=== PATIENT | male | born 1965 | race Caucasian/White ===

== ENCOUNTER 2017-10-08 07:37 | Day surgery (SDC) | payer OTHER ==
[2017-10-08] MEDS ORDERED: Phenylephrine 10 mg/ml Inj ONE (07:55)
[2017-10-08] MEDS ORDERED: Midazolam 2 MG/2 ML VIAL ONE ×2 (07:56→08:26)
[2017-10-08] MEDS ORDERED: Iodixanol 320 MG/ML 100 ML BOTTLE IV ONE (07:56)
[2017-10-08] MEDS ORDERED: Iohexol 350mgl/ml 50 ML ONE (07:56)
[2017-10-08] MEDS ORDERED: Iodixanol 320 MG/ML 200 ML BOTTLE IV ONE (07:57)
[2017-10-08] MEDS ORDERED: Nitroglycerin 50mg in D5W 50 MG/250 ML BOTTLE IV ONE (07:57)
[2017-10-08] MEDS ORDERED: Lidocaine 2% Inj (20ml) ONE ×2 (07:58→12:55)
[2017-10-08] MEDS ORDERED: Sodium Chloride 0.45% 1,000 ML IV SCH (13:15)
[2017-10-08 13:31] VITALS: TEMP 97.9
[2017-10-08 16:08] VITALS: BP 155/97; PULSE 119; RESP 20; O2SAT 98
--- NOTE | 2017-10-13 12:35 | CARDCATH ---
PROCEDURE DATE: 10/08/2017 PROCEDURES: 1. Percutaneous coronary intervention of the obtuse marginal artery and drug eluting stent placement. 2. Percutaneous coronary intervention of the left circumflex coronary artery with drug eluting stent placement. 3. Balloon angioplasty of the diagonal artery. CLINICAL INDICATIONS: 1. Chest pain. 2. Dnx-OC-dwgnczeih myocardial infarction. 3. Coronary artery disease. 4. Diabetes. 5. Hypertension. 6. Hyperlipidemia. REFERRING PHYSICIAN: Trish Traylor MD. PERFORMING PHYSICIAN: Abel Cid MD. PROCEDURE: After informed consent, the patient was prepped and draped in the usual sterile fashion. 2% lidocaine was given in the left groin for local anesthesia. Using micropuncture technique, 6-Bolivian sheath was introduced into left common femoral artery. The patient was preloaded with aspirin, Plavix and IV heparin. ACT was maintained above 250 throughout the procedure. A 6-Bolivian XB 3 guided catheter engaged into left main coronary artery. Contrast injected and left coronary angiogram was done. The patient has a 99% stenosis in the obtuse marginal 1 artery. The patient has a AVRIL 2 flow in this artery. Left circumflex coronary artery has a distal long 80% stenosis. There is AVRIL 3 flow in this arterial territory. Diagonal 1 branch has 100% occlusion. There is AVRIL 0 flow in this artery. Run through coronary wire introduced into obtuse marginal 1 artery. The lesion was predilated with 2 x 12 compliant balloon. Stented with 2.25 x 26 Resolute Randolph drug eluting stent. Then, the left circumflex coronary artery was stented using the same coronary wire. The entire lesion was predilated using the 2 x 20 Compliant balloon. Stented with 2.25 x 38 Resolute Randolph stent with brisk AVRIL 3 flow. Then, the same wire was introduced into diagonal artery 1 branch. The lesion was treated with balloon angioplasty using 2 x 25 compliant balloon. The patient achieved AVRIL 3 flow in this arterial territory aorta. Successful coronary intervention of obtuse marginal 1 and left circumflex coronary artery with drug-eluting stents and successful coronary intervention with balloon angioplasty of the diagonal artery. The procedure was uneventful. Postprocedure, hemostasis was achieved in the left groin with using Perclose system. The patient will be transferred to [facility] for further observation. Recommend Plavix for 1 year. Recommend aspirin, statin, beta blockers and JUAN inhibitors for life. Abel Cid MD
== END 2017-10-08 16:27 | disposition short-term general hospital (02) ==
LOC: MERGE 07:37 → CATH 07:37 → CCU 13:23 → CATH 16:27
PROVIDERS: ATTEND Internal Medicine Cardiovascular Disease
DX: I21.4 Non-ST elevation (NSTEMI) myocardial infarction (principal); I25.10 Atherosclerotic heart disease of native coronary artery without angina pectoris; I10 Essential (primary) hypertension; E11.9 Type 2 diabetes mellitus without complications; E78.5 Hyperlipidemia, unspecified; Z90.49 Acquired absence of other specified parts of digestive tract; Z79.84 Long term (current) use of oral hypoglycemic drugs; Z79.82 Long term (current) use of aspirin
CPT/HCPCS: 85175; 87081; 92920; 99152; 99153; C1725 ×2; C1760; C1769 ×2; C1874 ×2; C1887 ×2; C1894 ×2; C9600; J0360; J1644 ×2; J2250; J3010; J7030 ×2; Q9966; Q9967 ×2